=== PATIENT | female | born 1970 | race Caucasian/White ===

== ENCOUNTER 2020-11-07 22:02 | Emergency (ER) | payer OTHER ==
[2020-11-07 22:11] VITALS: BP 138/84; PULSE 67; TEMP 97.9; BMI 34.7
[2020-11-07] MEDS ORDERED: ACETAMINOPHEN 1000 MG/100 ML VIAL (NON FORMULARY) IVPB ONE (22:26)
[2020-11-07] MEDS ORDERED: SODIUM CHLORIDE 0.9% 500 ML INFUS.BAG IV ONE (22:26)
[2020-11-07 22:27] LABS: HCG,QUALITATIVE URINE Negative
[2020-11-07] MEDS ORDERED: ACETAMINOPHEN INJECTION 100 ML IVPB ONE (22:36)
[2020-11-07 22:58] LABS: EOS % 1.2 % (0-4.5); HEMATOCRIT 40.5 % (32.4-45.2); HEMOGLOBIN 13.4 GM/dl (10.7-15.3); LYMPH % 24.1 % (8-40); MCH 29.5 pg (25.7-33.7); MEAN CELL VOLUME 89.6 fl (80-96); MONO % 5.7 % (3.8-10.2); PLATELET COUNT 244 10^3/uL (134-434); RBC 4.52 M/mm3 (3.60-5.2); RDW 14.4 % (11.6-15.6); WHITE BLOOD COUNT 7.1 K/mm3 (4.0-10.8)
[2020-11-07 23:06] LABS: BILIRUBIN,TOTAL 0.6 mg/dl (0.2-1); CALCIUM 9.2 mg/dl (8.5-10); CREATININE 0.6 mg/dl (0.55-1.3); MAGNESIUM 1.9 mg/dL (1.8-2.4); TOT PROT 7.4 g/dl (6.4-8.2)
[2020-11-08] MEDS ORDERED: LIDOCAINE 5% TOPICAL PATCH TP ONE (01:29)
[2020-11-08] MEDS ORDERED: LIDOCAINE 5% TOPICAL PATCH ONE (01:31)
[2020-11-08] MEDS ORDERED: LIDOCAINE PATCH REMOVAL MC SCH (22:00)
== END 2020-11-08 01:34 | disposition home or self-care (01) ==
LOC: FER 22:02
PROC: 3E033NZ Introduction of Analgesics, Hypnotics, Sedatives into Peripheral Vein, Percutaneous Approach (ICD-10-PCS; principal; 2020-11-07)
DX: M54.41 Lumbago with sciatica, right side (principal)
CPT/HCPCS: 36415; 76705-TC; 80053; 81003; 83690; 83735; 84703; 85025; 99284-25; J0131

== ENCOUNTER 2021-10-23 13:07 | Inpatient (IN) | payer OTHER ==
[2021-10-23] MEDS ORDERED: SODIUM CHLORIDE 0.9% 1000 ML INFUS.BAG IV ONE ×2 (13:42→17:47)
[2021-10-23] MEDS ORDERED: ACETAMINOPHEN 1000 MG/100 ML BAG IVPB ONE ×2 (14:10→20:33)
[2021-10-23] MEDS ORDERED: ACETAMINOPHEN INJECTION 100 ML IVPB ONE (14:19)
[2021-10-23 15:32] LABS: HEMATOCRIT 42.1 % (32.4-45.2); HEMOGLOBIN 14.6 G/dL (10.7-15.3); MCH 30.3 pg (25.7-33.7); MCHC 34.7 g/dl (32.0-36.0); MEAN CELL VOLUME 87.3 fl (80-96); MEAN PLT VOLUME 9.2 fl (7.5-11.1); PLATELET COUNT 222.3 10^3/uL (134-434); RBC 4.82 10^6/uL (3.60-5.2); RDW 14.8 % (11.6-15.6); WHITE BLOOD COUNT 11.2 10^3/uL (4.0-10.8)
[2021-10-23 15:39] LABS: BILIRUBIN,TOTAL 0.9 mg/dl (0.2-1); CALCIUM 9.3 mg/dl (8.5-10); CREATININE 0.6 mg/dl (0.55-1.3); TOT PROT 7.8 g/dl (6.4-8.2)
[2021-10-23] MEDS ORDERED: CEFTRIAXONE 1,000 MG in DEXTROSE 5%-WATER - 50 ML IVPB ONE (17:13)
[2021-10-23] MEDS ORDERED: cefTRIAXone SODIUM 1 GM VIAL ONE (17:25)
[2021-10-23 17:33] LABS: LACTIC ACID 2.2 mmol/L (0.4-2.0)
[2021-10-23] MEDS ORDERED: SODIUM CHLORIDE 1,000 ML IV SCH (18:30)
[2021-10-23 19:03] LABS: CALCIUM 8.3 mg/dl (8.5-10); CREATININE 0.7 mg/dl (0.55-1.3)
[2021-10-23] MEDS ORDERED: INSULIN (NOVOLOG) ASPART 100 UNITS/ML 10ML VIAL ONE (19:24)
[2021-10-23] MEDS: INSULIN (NOVOLOG) ASPART 100 UNITS/ML 10ML VIAL SQ SCH (19:27)
[2021-10-23 20:04] LABS: LACTIC ACID 2.5 mmol/L (0.4-2.0)
[2021-10-23 20:09] VITALS: BMI 35.2
[2021-10-23] MEDS ORDERED: SODIUM CHLORIDE 500 ML IV STA (20:33)
[2021-10-23] MEDS: HEPARIN NA (PORCINE) 5,000 UNITS/ML 1ML VIAL SQ SCH (21:04)
[2021-10-23] MEDS: SODIUM CHLORIDE 1,000 ML IV SCH (21:45)
[2021-10-24] MEDS: INSULIN (NOVOLOG) ASPART 100 UNITS/ML 10ML VIAL SQ SCH ×3 (06:47→17:39)
[2021-10-24] MEDS: ACETAMINOPHEN 325 MG TABLET (FP) PO PRN ×3 (07:23→21:35)
[2021-10-24] MEDS ORDERED: cefTRIAXone SODIUM 1 GM VIAL ONE (09:25)
[2021-10-24] MEDS ORDERED: DEXTROSE 5%-WATER - 50 ML IVPB ONE (09:26)
[2021-10-24] MEDS: CEFTRIAXONE 1 GM in DEXTROSE 5%-WATER - 50 ML IVPB SCH (10:02)
[2021-10-24] MEDS: HEPARIN NA (PORCINE) 5,000 UNITS/ML 1ML VIAL SQ SCH ×2 (10:02→21:31)
[2021-10-24 10:17] LABS: HEMATOCRIT 36.3 % (32.4-45.2); HEMOGLOBIN 12.6 G/dL (10.7-15.3); MCH 30.3 pg (25.7-33.7); MCHC 34.6 g/dl (32.0-36.0); MEAN CELL VOLUME 87.8 fl (80-96); MEAN PLT VOLUME 9.7 fl (7.5-11.1); PLATELET COUNT 164.9 10^3/uL (134-434); RBC 4.14 10^6/uL (3.60-5.2); RDW 14.4 % (11.6-15.6); WHITE BLOOD COUNT 10.2 10^3/uL (4.0-10.8)
[2021-10-24 10:33] LABS: ALBUMIN 3.2 g/dl (3.4-5.0); BILIRUBIN,TOTAL 0.8 mg/dl (0.2-1); CALCIUM 8.1 mg/dl (8.5-10); CREATININE 0.6 mg/dl (0.55-1.3); TOT PROT 6.3 g/dl (6.4-8.2)
[2021-10-24] MEDS ORDERED: POTASSIUM CHLORIDE TABS 20 MEQ TABLET.ER (FP) PO ONE (18:09)
[2021-10-24] MEDS: SODIUM CHLORIDE 1,000 ML IV SCH (21:31)
[2021-10-25] MEDS: INSULIN (NOVOLOG) ASPART 100 UNITS/ML 10ML VIAL SQ SCH (06:54)
[2021-10-25 08:19] VITALS: BP 108/62; PULSE 78; TEMP 99.7
[2021-10-25 09:30] LABS: HEMATOCRIT 35.5 % (32.4-45.2); HEMOGLOBIN 12.1 G/dL (10.7-15.3); MCHC 34.1 g/dl (32.0-36.0); MEAN CELL VOLUME 88.2 fl (80-96); MEAN PLT VOLUME 9.5 fl (7.5-11.1); PLATELET COUNT 167.1 10^3/uL (134-434); RBC 4.03 10^6/uL (3.60-5.2); RDW 14.3 % (11.6-15.6); WHITE BLOOD COUNT 8.2 10^3/uL (4.0-10.8)
[2021-10-25] MEDS ORDERED: cefTRIAXone SODIUM 1 GM VIAL ONE ×2 (09:37→10:01)
[2021-10-25] MEDS ORDERED: DEXTROSE 5%-WATER - 50 ML IVPB ONE ×2 (09:38→10:01)
[2021-10-25] MEDS: HEPARIN NA (PORCINE) 5,000 UNITS/ML 1ML VIAL SQ SCH (09:40)
[2021-10-25] MEDS: CEFTRIAXONE 1 GM in DEXTROSE 5%-WATER - 50 ML IVPB SCH (09:40)
[2021-10-25] MEDS ORDERED: CEFTRIAXONE 1,000 MG in DEXTROSE 5%-WATER - 50 ML IVPB ONE (09:59)
[2021-10-25 10:25] LABS: CALCIUM 7.8 mg/dL (8.5-10.1)
[2021-10-25 10:26] LABS: ALBUMIN 2.9 g/dl (3.4-5.0); BLOOD UREA NITROGEN 7.7 mg/dL (7-18); MAGNESIUM 2.3 mg/dL (1.8-2.4)
[2021-10-25] MEDS ORDERED: CEFTRIAXONE 1 GM in DEXTROSE 5%-WATER - 50 ML IVPB ONE (10:27)
[2021-10-25 10:29] LABS: CREATININE 0.5 mg/dL (0.55-1.3); PHOSPHOROUS 1.9 mg/dL (2.5-4.9)
[2021-10-25 10:30] LABS: BILIRUBIN,TOTAL 0.5 mg/dL (0.2-1); TOT PROT 6.3 g/dl (6.4-8.2)
[2021-10-25 11:33] LABS: ANISOCYTOSIS 0; MACROCYTOSIS 0
== END 2021-10-25 11:14 | disposition home or self-care (01) | DRG 463 ==
LOC: SUPCPDRO 13:07 → FER 13:07 → FM/S 18:23
PROVIDERS: ADMIT Internal Medicine
DX: N10 Acute pyelonephritis (principal); E87.1 Hypo-osmolality and hyponatremia; E11.9 Type 2 diabetes mellitus without complications; I10 Essential (primary) hypertension; E78.5 Hyperlipidemia, unspecified; E66.9 Obesity, unspecified; N20.0 Calculus of kidney; M54.9 Dorsalgia, unspecified; Z68.35 Body mass index [BMI] 35.0-35.9, adult; R31.9 Hematuria, unspecified; Z79.84 Long term (current) use of oral hypoglycemic drugs
CPT/HCPCS: 0241U-QW; 36415; 71046-TC-FY; 74176-TC; 74177-TC; 80048; 80053; 80061; 81003; 81015; 82962; 83036; 83605; 83690; 83735; 84100; 84443; 85025; 85027; 87040; 87086; 87186; 99285-25; J1644; Q9967

== ENCOUNTER 2022-01-01 11:34 | Emergency (ER) | payer OTHER ==
[2022-01-01 11:47] VITALS: BP 114/73; PULSE 100; RESP 16; TEMP 98.9; BMI 33.1
[2022-01-01 12:11] LABS: EPITHELIAL CELLS FEW /hpf
[2022-01-01] MEDS ORDERED: CEFTRIAXONE 1,000 MG in DEXTROSE 5%-WATER - 50 ML IVPB ONE (12:43)
[2022-01-01] MEDS ORDERED: cefTRIAXone SODIUM 1 GM VIAL ONE (12:51)
[2022-01-01 13:02] LABS: HEMATOCRIT 39.1 % (32.4-45.2); HEMOGLOBIN 13.7 G/dL (10.7-15.3); MCH 30.7 pg (25.7-33.7); MEAN CELL VOLUME 87.6 fl (80-96); MEAN PLT VOLUME 8.4 fl (7.5-11.1); PLATELET COUNT 245.6 10^3/uL (134-434); RBC 4.46 10^6/uL (3.60-5.2); RDW 13.9 % (11.6-15.6)
[2022-01-01 13:10] LABS: PLATELET ESTIMATE ADEQUATE
[2022-01-01 13:15] LABS: ALBUMIN 3.5 g/dl (3.4-5.0); BILIRUBIN,TOTAL 1.3 mg/dl (0.2-1); CALCIUM 8.8 mg/dl (8.5-10); CREATININE 0.8 mg/dl (0.55-1.3); TOT PROT 7.3 g/dl (6.4-8.2)
== END 2022-01-01 14:11 | disposition home or self-care (01) ==
LOC: FER 11:34
PROC: 3E033GC Introduction of Other Therapeutic Substance into Peripheral Vein, Percutaneous Approach (ICD-10-PCS; principal; 2022-01-01)
DX: N39.0 Urinary tract infection, site not specified (principal)
CPT/HCPCS: 36415; 80053; 81003; 81015; 82962; 85025; 87086; 87186; 99284-25

== ENCOUNTER 2022-04-04 18:12 | Emergency (ER) | payer OTHER ==
[2022-04-04 18:26] VITALS: RESP 18; BMI 32.4
[2022-04-04] MEDS ORDERED: ACETAMINOPHEN 325 MG TABLET (FP) ONE (19:19)
[2022-04-04] MEDS ORDERED: ACETAMINOPHEN 325 MG TABLET (FP) PO ONE (19:22)
[2022-04-04] MEDS ORDERED: SODIUM CHLORIDE 1,000 ML IV STA (19:39)
[2022-04-04 20:58] LABS: HEMATOCRIT 40.5 % (32.4-45.2); HEMOGLOBIN 13.9 G/dL (10.7-15.3); MCH 29.8 pg (25.7-33.7); MCHC 34.4 g/dl (32.0-36.0); MEAN CELL VOLUME 86.5 fl (80-96); MEAN PLT VOLUME 9.8 fl (7.5-11.1); PLATELET COUNT 209.3 10^3/uL (134-434); RBC 4.68 10^6/uL (3.60-5.2); RDW 14.6 % (11.6-15.6); WHITE BLOOD COUNT 16.8 10^3/uL (4.0-10.8)
[2022-04-04 21:07] LABS: ALBUMIN 3.6 g/dl (3.4-5.0); BILIRUBIN,TOTAL 1.2 mg/dl (0.2-1); CALCIUM 8.5 mg/dl (8.5-10); CREATININE 0.8 mg/dl (0.55-1.3); TOT PROT 7.2 g/dl (6.4-8.2)
[2022-04-04] MEDS ORDERED: CEFTRIAXONE 1,000 MG in DEXTROSE 5%-WATER - 50 ML IVPB ONE (21:21)
[2022-04-04 21:23] LABS: EPITHELIAL CELLS MODERATE /hpf
[2022-04-04] MEDS ORDERED: cefTRIAXone SODIUM 1 GM VIAL ONE (21:37)
[2022-04-04 21:49] VITALS: BP 104/67; PULSE 79; TEMP 98.5
[2022-04-04 23:39] LABS: PLATELET ESTIMATE ADEQUATE
[2022-04-05] MEDS ORDERED: ONDANSETRON 4 MG/2 ML VIAL IVPUSH ONE (00:43)
[2022-04-05] MEDS ORDERED: ONDANSETRON 4 MG/2 ML VIAL ONE (00:48)
[2022-04-05] MEDS ORDERED: ACETAMINOPHEN 325 MG TABLET (FP) ONE (00:53)
[2022-04-05] MEDS ORDERED: ACETAMINOPHEN 325 MG TABLET (FP) PO ONE (00:53)
== END 2022-04-05 01:13 | disposition left against medical advice (07) ==
LOC: FER 18:12
PROC: 3E033GC Introduction of Other Therapeutic Substance into Peripheral Vein, Percutaneous Approach (ICD-10-PCS; principal; 2022-04-04)
DX: N12 Tubulo-interstitial nephritis, not specified as acute or chronic (principal)
CPT/HCPCS: 0241U-QW; 36415; 74176-TC; 80053; 81003; 81015; 83605; 85027; 87040; 87086; 87186; 99285-25

== ENCOUNTER 2022-06-13 10:44 | Emergency (ER) | payer OTHER ==
[2022-06-13 10:53] VITALS: BP 122/80; PULSE 95; RESP 18; TEMP 98.1; BMI 31.3
[2022-06-13] MEDS ORDERED: SODIUM CHLORIDE 0.9% 500 ML INFUS.BAG IV ONE (10:53)
[2022-06-13 11:37] LABS: HEMATOCRIT 38.4 % (32.4-45.2); HEMOGLOBIN 13.3 G/dL (10.7-15.3); MCH 30.2 pg (25.7-33.7); MCHC 34.6 g/dl (32.0-36.0); MEAN CELL VOLUME 87.3 fl (80-96); MEAN PLT VOLUME 8.8 fl (7.5-11.1); RDW 14.7 % (11.6-15.6)
[2022-06-13 11:48] LABS: ALBUMIN 3.8 g/dl (3.4-5.0); BILIRUBIN,TOTAL 0.9 mg/dl (0.2-1); CREATININE 0.6 mg/dl (0.55-1.3)
[2022-06-13] MEDS ORDERED: CEFTRIAXONE 1,000 MG in DEXTROSE 5%-WATER - 50 ML IVPB ONE (11:55)
[2022-06-13] MEDS ORDERED: cefTRIAXone SODIUM 1 GM VIAL ONE (12:02)
[2022-06-13 12:11] LABS: EPITHELIAL CELLS FEW /hpf
== END 2022-06-13 13:40 | disposition home or self-care (01) ==
LOC: FER 10:44
DX: N10 Acute pyelonephritis (principal)
CPT/HCPCS: 36415; 74177-TC; 80053; 81003; 81015; 83605; 85027; 87086; 87186; 99285-25; Q9967

== ENCOUNTER 2022-07-23 09:45 | Emergency (ER) | payer OTHER ==
[2022-07-23 09:53] VITALS: BP 145/82; PULSE 96; RESP 18; TEMP 98.1; BMI 31.3
[2022-07-23] MEDS ORDERED: CEFPODOXIME PROXETIL 100 MG TABLET PO ONE (10:24)
[2022-07-23 10:40] LABS: EPITHELIAL CELLS FEW /hpf
== END 2022-07-23 10:40 | disposition home or self-care (01) ==
LOC: FER 09:45
DX: N10 Acute pyelonephritis (principal)
CPT/HCPCS: 81003; 81015; 87086; 87186; 99283-25

== ENCOUNTER 2022-12-17 13:16 | Emergency (ER) | payer OTHER ==
[2022-12-17 13:38] VITALS: BP 149/91; PULSE 92; RESP 18; TEMP 98.9; BMI 31.8
[2022-12-17] MEDS ORDERED: SODIUM CHLORIDE 1,000 ML IV STA (13:48)
[2022-12-17] MEDS ORDERED: KETOROLAC TROMETHAMINE 30 MG/1 ML VIAL IVPUSH ONE (13:49)
[2022-12-17 13:50] LABS: EPITHELIAL CELLS FEW /hpf
[2022-12-17] MEDS ORDERED: KETOROLAC TROMETHAMINE 30 MG/1 ML VIAL ONE (13:56)
[2022-12-17] MEDS ORDERED: CEFTRIAXONE 1,000 MG in DEXTROSE 5%-WATER - 50 ML IVPB ONE (14:29)
[2022-12-17] MEDS ORDERED: cefTRIAXone SODIUM 1 GM VIAL ONE (14:50)
== END 2022-12-17 15:31 | disposition home or self-care (01) ==
LOC: FER 13:16
PROC: 3E03329 Introduction of Other Anti-infective into Peripheral Vein, Percutaneous Approach (ICD-10-PCS; principal; 2022-12-17)
PROC: 3E033GC Introduction of Other Therapeutic Substance into Peripheral Vein, Percutaneous Approach (ICD-10-PCS; 2022-12-17)
PROC: 3E0337Z Introduction of Electrolytic and Water Balance Substance into Peripheral Vein, Percutaneous Approach (ICD-10-PCS; 2022-12-17)
DX: N39.0 Urinary tract infection, site not specified (principal)
CPT/HCPCS: 81003; 81015; 87086; 87186; 99284-25

== ENCOUNTER 2023-01-23 10:10 | Emergency (ER) | payer OTHER ==
[2023-01-23 10:22] VITALS: BP 119/68; PULSE 75; RESP 18; TEMP 98.8; BMI 31.3
[2023-01-23] MEDS ORDERED: KETOROLAC TROMETHAMINE 15 MG/ML VIAL IVPUSH ONE (10:47)
[2023-01-23] MEDS ORDERED: FAMOTIDINE 20 MG/50 ML IVPB 20 MG/50 ML MG IVPB ONE ×2 (10:47→11:32)
[2023-01-23] MEDS ORDERED: SODIUM CHLORIDE 0.9% 1000 ML INFUS.BAG IV ONE (10:47)
[2023-01-23] MEDS ORDERED: ONDANSETRON 4 MG/2 ML VIAL IVPUSH ONE (10:47)
[2023-01-23] MEDS ORDERED: ONDANSETRON 4 MG/2 ML VIAL ONE (10:55)
[2023-01-23] MEDS ORDERED: KETOROLAC TROMETHAMINE 15 MG/ML VIAL ONE (10:55)
[2023-01-23 11:06] LABS: HCG,QUALITATIVE URINE Negative
[2023-01-23 11:22] LABS: HEMATOCRIT 38.1 % (32.4-45.2); HEMOGLOBIN 12.7 G/dL (10.7-15.3); MCH 28.9 pg (25.7-33.7); MCHC 33.4 g/dl (32.0-36.0); MEAN CELL VOLUME 86.6 fl (80-96); MEAN PLT VOLUME 9.4 fl (7.5-11.1); PLATELET COUNT 228.2 10^3/uL (134-434); RDW 14.9 % (11.6-15.6); WHITE BLOOD COUNT 11.9 10^3/uL (4.0-10.8)
[2023-01-23 11:27] LABS: EPITHELIAL CELLS MODERATE /hpf
[2023-01-23 11:45] LABS: ALBUMIN 4.1 g/dl (3.4-5.0); BILIRUBIN,TOTAL 1.2 mg/dl (0.2-1); BLOOD UREA NITROGEN 7.4 mg/dl (7-18); CALCIUM 8.6 mg/dl (8.5-10.1); CREATININE 0.8 mg/dl (0.6-1.3); POTASSIUM 3.6 mmol/L (3.5-5.1); SGOT/AST 13.2 U/L (15-37); SGPT/ALT 12.5 U/L (7-52)
[2023-01-23] MEDS ORDERED: CEFTRIAXONE 1 GM in DEXTROSE 5%-WATER - 100 ML IVPB ONE (12:27)
[2023-01-23] MEDS ORDERED: cefTRIAXone SODIUM 1 GM VIAL ONE (12:48)
== END 2023-01-23 13:30 | disposition home or self-care (01) ==
LOC: FER 10:10
PROC: 3E03329 Introduction of Other Anti-infective into Peripheral Vein, Percutaneous Approach (ICD-10-PCS; principal; 2023-01-23)
PROC: 3E033GC Introduction of Other Therapeutic Substance into Peripheral Vein, Percutaneous Approach (ICD-10-PCS; 2023-01-23)
PROC: 3E0333Z Introduction of Anti-inflammatory into Peripheral Vein, Percutaneous Approach (ICD-10-PCS; 2023-01-23)
PROC: 3E033GC Introduction of Other Therapeutic Substance into Peripheral Vein, Percutaneous Approach (ICD-10-PCS; 2023-01-23)
DX: M54.50 Low back pain, unspecified (principal); R50.9 Fever, unspecified; R05.9 Cough, unspecified; J02.9 Acute pharyngitis, unspecified; R10.30 Lower abdominal pain, unspecified; N12 Tubulo-interstitial nephritis, not specified as acute or chronic; Z20.822 Contact with and (suspected) exposure to COVID-19
CPT/HCPCS: 0241U-QW; 36415; 74176-TC; 80053; 81003; 81015; 84703; 85027; 87086; 87186; 99284-25

== ENCOUNTER 2024-01-31 14:39 | Emergency (ER) | payer OTHER ==
[2024-01-31 14:58] VITALS: BP 133/74; PULSE 84; RESP 16; TEMP 99.1; BMI 29.5
[2024-01-31] MEDS ORDERED: ONDANSETRON 4 MG/2 ML VIAL ONE (15:21)
[2024-01-31] MEDS: ONDANSETRON 4 MG/2 ML VIAL IVPUSH ONE (15:26)
[2024-01-31] MEDS ORDERED: cefTRIAXone SODIUM 1 GM VIAL ONE (15:36)
[2024-01-31 16:26] LABS: HEMOGLOBIN 13.4 G/dL (10.7-15.3); MCH 29.4 pg (25.7-33.7); MCHC 32.6 g/dl (32.0-36.0); MEAN PLT VOLUME 9.5 fl (7.5-11.1); PLATELET COUNT 288.9 10^3/uL (134-434); RBC 4.55 10^6/uL (3.60-5.2); WHITE BLOOD COUNT 9.4 10^3/uL (4.0-10.8)
[2024-01-31 16:27] LABS: ALBUMIN 4.4 g/dl (3.4-5.0); BILIRUBIN,TOTAL 0.6 mg/dl (0.2-1); CALCIUM 9.6 mg/dl (8.5-10.1); CREATININE 0.7 mg/dl (0.6-1.3); POTASSIUM 4.1 mmol/L (3.5-5.1); TOT PROT 7.2 g/dl (6.4-8.2)
[2024-01-31 16:45] LABS: PLATELET ESTIMATE ADEQUATE
[2024-01-31 18:38] LABS: HIV INTERPRETATION NEGATIVE (NEGATIVE)
== END 2024-01-31 18:02 | disposition home or self-care (01) ==
LOC: FER 14:39
PROC: 3E03329 Introduction of Other Anti-infective into Peripheral Vein, Percutaneous Approach (ICD-10-PCS; principal; 2024-01-31)
PROC: 3E033GC Introduction of Other Therapeutic Substance into Peripheral Vein, Percutaneous Approach (ICD-10-PCS; 2024-01-31)
DX: R50.9 Fever, unspecified (principal); R10.9 Unspecified abdominal pain; N12 Tubulo-interstitial nephritis, not specified as acute or chronic; R11.0 Nausea
CPT/HCPCS: 36415; 76775-TC; 80053; 81003; 81015; 85027; 86803; 87086; 87186; 87389; 99284-25